=== PATIENT | female | born 1990 | race Caucasian/White ===

== ENCOUNTER 2024-03-18 09:07 | Outpatient (CLI) | payer BC, SELFPAY | END 2024-03-18 09:08 | disposition home or self-care (01) | PROVIDERS: Visit Provider Obstetrics & Gynecology | DX: Z31.69 Encounter for other general counseling and advice on procreation (principal) | CPT/HCPCS: 86703; 86762; 86787; 86803; 86850; 86900; 86901 ==

== ENCOUNTER 2024-08-30 15:31 | Outpatient (CLI) | payer BC, SELFPAY ==
--- NOTE | 2024-08-30 15:45 | CRLHL7_ITS ---
For Patients: As a result of the Century Cures Act, medical imaging exams and procedure reports are released immediately into your electronic medical record. You may view this report before your referring provider. If you have questions, please contact your health care provider. OBSTETRICAL ULTRASOUND TRANSVAGINAL ??? 1ST TRIMESTER, 08/30/2024 CLINICAL INDICATION: Dating and viability. LMP: 06/29/2024 ENMA by LMP: 04/05/2025 Gestational age: 8 weeks 6 days Previous ultrasound: No TECHNIQUE: Real-time shepherd-scale imaging of the fetus was performed transvaginal. Transvaginal imaging was performed for better visualization of the endometrium and ovaries. FINDINGS: CRL: 2.4 cm, 9 weeks 0 days; ENMA 04/04/2025 heart rate: 176 BPM Gestational sac: 3.7 cm, appears within normal limits Yolk sac: 3.7 mm, appears within normal limits Right ovary: 3.1 x 2.4 x 2.2 cm Left ovary: 4.9 x 2.6 x 1.9 cm, CL IMPRESSION: Single living intrauterine measuring 9 weeks 0 days with sonographic due date of 04/04/2025. JOSHUA BA M.D. Diagnostic Radiologist [email or web address] Transcribed: 5:[address]/Dictated by: Joshua Ba MD @ 08/30/2024 5:04:00 PM (Electronically Signed)
== END 2024-08-30 15:32 | disposition home or self-care (01) ==
PROVIDERS: Visit Provider Registered Nurse
DX: Z34.91 Encounter for supervision of normal pregnancy, unspecified, first trimester (principal); Z3A.08 8 weeks gestation of pregnancy
CPT/HCPCS: 76817; 82565; 82570; 83021; 84156; 84443; 84450; 84460; 84520; 86592; 86703; 86704; 86706; 86803; 86850; 87086; 87340; 87491; 87591

== ENCOUNTER 2024-11-21 13:56 | Outpatient (CLI) | payer BC, SELFPAY ==
--- NOTE | 2024-11-21 14:00 | CRLHL7_ITS ---
For Patients: As a result of the 21st Century Cures Act, medical imaging exams and procedure reports are released immediately into your electronic medical record. You may view this report before your referring provider. If you have questions, please contact your health care provider. OB ULTRASOUND ANATOMY SURVEY LMP: 06/29/2024. ENMA by LMP: 04/05/2025. GA: 20 w, 5 d. INDICATION: Basic anatomy survey. TECHNIQUE: Real time shepherd scale imaging of the fetus was performed. Evaluate anatomy. Transabdominal imaging performed. position: Vertex. Cervix: Visualized. Technique: Transabdominal. Length of closed cervix: 4.6 cm. Placenta/cord: Posterior. Technique: Transabdominal. Placenta tip to internal OS: 10.7 cm. Umbilical Cord: 3-vessel cord. Placenta insertion: Marginal (within 2 cm of placenta edge). Amniotic Fluid: 4.6 cm SDP (greater than/equal to: 2- less than 8 cm). SURVEY: Observed Structures. Calvarium/Spine: Cerebellum: 2.3 cm, 22 w 4 d. Cisterna Magna: 6.1 mm. Nuchal Fold: 4.5 mm. Lateral Ventricle: 7.3 mm. CSP: Yes. Midline Falx: Yes. Choroid Plexus: Yes. Spine: Yes. Abdomen: Stomach: Yes. Abd Cord Insertion: Yes. Urinary Bladder: Yes. Kidneys: Yes. Diaphragm: Yes. Face: Nose/lips: See comments. Orbital view: Yes. Profile: See comments. Limbs: Upper Extremities: Yes. Lower Extremities: Yes. Hands: Yes. Feet: Yes. Vascular: 4-Chamber Heart: See comments. LVOT: See comments. RVOT: See comments. 3VV: See comments. 3VTV: See comments. BPD: 5.0 cm. 21 w, 2 d, 70.3 percent. HC: 18.8 cm. 21 w, 0 d, 57.5 percent. AC: 15.8 cm. 21 w, 0 d, 50.9 percent. FL: 3.5 cm. 21 w, 0 d, 53.1 percent. FL/AC ratio: 22.2 percent. HC/AC ratio: 1.2. heart rate: 141 bpm. age by this US: 21 w, 2 d. ENMA by this US: 04/01/2025. EFW: 392.3 g. Weight: - lbs, 14 oz. Percentile by ENMA: 61.3 percent. IMPRESSION: 1. Concordance of clinical and sonographic dating. 2. Incomplete visualization of the profile, nose, lips and heart. Remainder of the anatomic survey is normal. Short-term follow up is recommended. 3. Marginal placental cord insertion noted located 1.7 cm from the placental edge. Joshua Gómez M.D. Diagnostic Radiologist [email or web address] SP/Dictated by: Joshua Gómez MD @ 11/21/2024 4:02:00 PM (Electronically Signed)
== END 2024-11-21 13:57 | disposition home or self-care (01) ==
LOC: US 13:57
PROVIDERS: Visit Provider Advanced Practice Midwife
DX: O43.192 Other malformation of placenta, second trimester (principal); O35.AXX0 Maternal care for other (suspected) fetal abnormality and damage, fetal facial anomalies, not applicable or unspecified; O36.8320 Maternal care for abnormalities of the fetal heart rate or rhythm, second trimester, not applicable or unspecified; Z3A.20 20 weeks gestation of pregnancy; Z20.828 Contact with and (suspected) exposure to other viral communicable diseases
CPT/HCPCS: 76805

== ENCOUNTER 2024-11-21 15:18 | Outpatient (CLI) | payer BC, SELFPAY | END 2024-11-21 15:19 | disposition home or self-care (01) | LOC: NFLDREF 15:21 | PROVIDERS: Visit Provider Advanced Practice Midwife | DX: Z20.828 Contact with and (suspected) exposure to other viral communicable diseases (principal) | CPT/HCPCS: 76805; 86765 ==

== ENCOUNTER 2024-12-16 08:14 | Outpatient (CLI) | payer BC, SELFPAY ==
--- NOTE | 2024-12-16 08:15 | CRLHL7_ITS ---
For Patients: As a result of the Century Cures Act, medical imaging exams and procedure reports are released immediately into your electronic medical record. You may view this report before your referring provider. If you have questions, please contact your health care provider. OB ULTRASOUND FOLLOW-UP CLINICAL HISTORY: Follow-up missing anatomy, nose/lips, profile, heart. TECHNIQUE: Real time shepherd scale imaging of the fetus was performed. Transabdominal imaging performed. FINDINGS: ENMA by LMP/US: 04/05/2025. GA: 24 weeks 2 days. Gestation: Single. Comparison: 11/21/2024. Cervix: Not visualized. Positioning: Breech. Amniotic Fluid: 5.5 cm SDP. Dopplers: Heart Rate: 150 bpm. IMPRESSION: 1. Placental cord insertion 2.6 cm from the placental edge. 2. Normal nose, lips, profile and heart. Joshua Gómez M.D. Diagnostic Radiologist [email or web address] Transcribed: 9:30 am DW/Dictated by: Joshua Gómez MD @ 12/18/2024 10:40:00 PM (Electronically Signed)
== END 2024-12-16 08:15 | disposition home or self-care (01) ==
PROVIDERS: Visit Provider Advanced Practice Midwife
DX: Z36.2 Encounter for other antenatal screening follow-up (principal); Z3A.24 24 weeks gestation of pregnancy
CPT/HCPCS: 76816

== ENCOUNTER 2025-01-11 14:27 | Outpatient (CLI) | payer BC, SELFPAY | END 2025-01-11 14:28 | disposition home or self-care (01) | LOC: NFLDREF 01-26 14:16 | PROVIDERS: Visit Provider Advanced Practice Midwife | DX: Z34.92 Encounter for supervision of normal pregnancy, unspecified, second trimester (principal) | CPT/HCPCS: 86592 ==

== ENCOUNTER 2025-02-15 15:50 | Outpatient (CLI) | payer BC, SELFPAY | END 2025-02-15 15:51 | disposition home or self-care (01) | LOC: NFLDREF 02-20 10:05 | PROVIDERS: Visit Provider Advanced Practice Midwife | DX: Z34.93 Encounter for supervision of normal pregnancy, unspecified, third trimester (principal) | CPT/HCPCS: 82728 ==